=== PATIENT | male | born 1945 | race Caucasian/White ===

== ENCOUNTER → 2017-07-30 | Outpatient (CLI) | payer MEDICARE, BC ==
--- NOTE | 2017-07-30 16:53 | XR ---
EXAMINATION TYPE: XR lumbar spine 2 or 3V DATE OF EXAM: 07/30/2017 COMPARISON: NONE HISTORY: Back pain TECHNIQUE: 3 views FINDINGS: Vertebra have normal alignment. There is anterior mild spurring in the mid and upper lumbar spine. Posterior elements are intact. There is no compression fracture. Sacroiliac joints are intact . IMPRESSION: Mild multilevel spondylosis. No fracture.
--- NOTE | 2017-07-30 16:54 | XR ---
EXAMINATION TYPE: XR pelvis AP view DATE OF EXAM: 07/30/2017 COMPARISON: NONE HISTORY: Back pain TECHNIQUE: Single view FINDINGS: Pelvic ring is intact. Proximal femurs and hip joints are intact. Sacroiliac joints appear normal. IMPRESSION: Normal pelvis. Normal hip joint spaces.
--- NOTE | 2017-07-30 17:03 | XR ---
EXAMINATION TYPE: XR chest 2V DATE OF EXAM: 07/30/2017 COMPARISON: 11/21/2013 HISTORY: Cough TECHNIQUE: Frontal and lateral views of the chest are obtained. FINDINGS: There is no heart failure nor confluent pneumonic infiltrate. There is poor inspiration. B irais thorax is intact. IMPRESSION: Poor inspiration. No acute lung disease. No change.
== END ==
LOC: RADXRMAIN 16:16
PROVIDERS: ATTEND Physician Assistant
DX: M47.816 Spondylosis without myelopathy or radiculopathy, lumbar region (principal); M54.5 Low back pain; R05 Cough
CPT/HCPCS: 71020; 72100; 72170

== ENCOUNTER 2017-10-28 23:39 | Emergency (ER) | payer MEDICARE, BC ==
[2017-10-28 23:46] VITALS: BP 148/81; PULSE 75; RESP 17; TEMP 97
[2017-10-28] MEDS ORDERED: TOPICAL SKIN ADHESIVE 1 EACH AMP TOPICAL ONE (23:55)
--- NOTE | 2017-10-29 00:14 | ED ---
Male Urogenital HPI - General Chief complaint: Urogenital Stated complaint: Male Time Seen by Provider: 10/28/17 23:49 Source: patient, RN notes reviewed Mode of arrival: ambulatory Limitations: no limitations - History of Present Illness Initial comments: This is a 72-year-old male who presents with complaints of bleeding from his scrotum for the past hour or so. He states he was sitting watching television when he got up and noted that he had bleeding in his underwear. This is never occurred before he has no history of recent trauma no scrotal or penile pathology. No fevers chills nausea vomiting sweats or other symptoms. He did wear a depends undergarment to come to the hospital. MD Complaint: other - Related Data Home Medications Medication Instructions Recorded Confirmed Albuterol Inhaler [Ventolin Hfa 2 puff INHALATION QID PRN 07/11/15 07/17/15 Inhaler] Calcium Carbonate [Tums] 1 - 2 tab PO BID PRN 07/11/15 07/17/15 Fluticasone Nasal [place] [Flonase 1 spray NASAL DAILY 07/11/15 07/17/15 Nasal [place]] Lisinopril [Prinivil] 5 mg PO HS 07/11/15 07/17/15 Pravastatin Sodium [Pravachol] 40 mg PO HS 07/11/15 07/17/15 Previous Rx's Medication Instructions Recorded Cephalexin [Keflex] 500 mg PO Q8HR #15 cap 07/17/15 HYDROcodone/APAP 5-325MG [Hend[place] 5] 1 - 2 each PO Q4-6H PRN #90 tab 07/17/15 Allergies Allergy/AdvReac Type Severity Reaction Status Date / Time No Known Allergies Allergy Verified 07/11/15 16:00 Review of Systems ROS Statement: Those systems with pertinent positive or pertinent negative responses have been documented in the HPI. ROS Other: All systems not noted in ROS Statement are negative. Past Medical History Past Medical History: GERD/Reflux, Hyperlipidemia, Hypertension, Prostate Disorder Additional Past Medical History / Comment(s): BRONCHITIS. SEASONAL ALLERGIES. History of Any Multi-Drug Resistant Organisms: None Reported Past Surgical History: Cholecystectomy, Hernia Repair, Orthopedic Surgery Additional Past Surgical History / Comment(s): RIGHT SHOULDER, CARPAL TUNNEL, LEFT SHOULDER ACROMIOPLASTY EXCISION DISTAL END OF CLAVICLE AND ROTATOR CUFF Past Anesthesia/Blood Transfusion Reactions: No Reported Reaction Past Psychological History: No Psychological Hx Reported Smoking Status: Never smoker Past Alcohol Use History: Rare Past Drug Use History: None Reported - Past Family History Mother Family Medical History: Cancer General Exam - General Exam Comments Initial Comments: This is a well-developed well-nourished awake alert oriented 3 male he is hard of hearing Limitations: no limitations General appearance: alert, in no apparent distress Eye exam: Present: normal appearance, PERRL, EOMI. Absent: scleral icterus, conjunctival injection, periorbital swelling GI/Abdominal exam: Present: soft, normal bowel sounds. Absent: distended, tenderness, guarding, rebound, rigid Rectal exam: Present: deferred exam: Present: circumcision, other (The patient does demonstrate several varicosities noted on the scrotumand left it appears 100 spontaneously started bleeding is no active bleeding at this time. Is some dried blood noted to the left anterior aspect the scrotum. Testicles are within normal limits no epididymal tenderness or lesions. No penile discharge is seen.). Absent: scrotal swelling Extremities exam: Present: normal inspection, full ROM, normal capillary refill. Absent: tenderness, pedal edema, joint swelling, calf tenderness Neurological exam: Present: alert, oriented X3, CN II-XII intact Psychiatric exam: Present: normal affect, normal mood Skin exam: Present: warm, dry, normal color. Absent: intact, rash Course Vital Signs 10/28/17 23:42 Temperature 97.0 F L Pulse Rate 75 Respiratory 17 Rate Blood Pressure 148/81 O2 Sat by Pulse 97 Oximetry Procedures - Procedures Initial comment: The area of varicosity bleed was cleaned and Dermabond was used to seal the area. The patient did tolerate this well. Medical Decision Making - Medical Decision Making No further workup is indicated at this time the patient will be discharged. Disposition Clinical Impression: Scrotal bleeding, Varicose vein of scrotum Disposition: HOME SELF-CARE Condition: Good Instructions: Varicose Veins (ED) Referrals: Gustavo Boggs MD [Primary Care Provider] - 1-2 days
== END 2017-10-29 00:15 | disposition home or self-care (01) ==
LOC: EC 23:39
DX: I86.1 Scrotal varices (principal); N50.1 Vascular disorders of male genital organs; E78.5 Hyperlipidemia, unspecified; I10 Essential (primary) hypertension; Z79.51 Long term (current) use of inhaled steroids; Z79.899 Other long term (current) drug therapy; Z87.09 Personal history of other diseases of the respiratory system; Z98.890 Other specified postprocedural states
CPT/HCPCS: 12001; 99283

== ENCOUNTER 2018-04-10 22:26 | Emergency (ER) | payer MEDICARE, BC ==
[2018-04-10] MEDS ORDERED: SODIUM CHLORIDE 0.9% 1,000 ML IV STA (22:43)
--- NOTE | 2018-04-10 22:46 | ED ---
Abdominal Pain HPI - General Chief Complaint: Abdominal Pain Stated Complaint: abd pain Time Seen by Provider: 04/10/18 22:35 Source: patient, RN notes reviewed Mode of arrival: ambulatory Limitations: no limitations - History of Present Illness Initial Comments: This is a 72-year-old male who presents to the emergency department with chief complaint of abdominal pain. Patient states that 2-3 days ago he developed a constant, sharp pain that extends transversely along the mid abdomen. He states that pain is made worse by lying flat and made better by sitting up and leaning to the right. He states that the pain is made worse by walking for long periods of time. He denies nausea or vomiting, diarrhea or constipation, fevers or chills, chest pain or shortness of breath. He states that he does have a history of cholecystectomy but denies other abdominal surgeries. Denies dysuria, hematuria or increase in urinary frequency. He states that on the day of onset, the pain was mild and dull. He states it has progressively worsened and today has been the worst. He states that he took 1000 mg of Tylenol with minimal relief. - Related Data Home Medications Medication Instructions Recorded Confirmed Albuterol Inhaler [Ventolin Hfa 2 puff INHALATION QID PRN 07/11/15 07/17/15 Inhaler] Calcium Carbonate [Tums] 1 - 2 tab PO BID PRN 07/11/15 07/17/15 Fluticasone Nasal [place] [Flonase 1 spray NASAL DAILY 07/11/15 07/17/15 Nasal [place]] Lisinopril [Prinivil] 5 mg PO HS 07/11/15 07/17/15 Pravastatin Sodium [Pravachol] 40 mg PO HS 07/11/15 07/17/15 Previous Rx's Medication Instructions Recorded Cephalexin [Keflex] 500 mg PO Q8HR #15 cap 07/17/15 HYDROcodone/APAP 5-325MG [[place] 5] 1 - 2 each PO Q4-6H PRN #90 tab 07/17/15 Azithromycin [Zithromax Z-pack] 0 mg PO DIRECTED #6 tab 04/11/18 Allergies Allergy/AdvReac Type Severity Reaction Status Date / Time No Known Allergies Allergy Verified 04/10/18 22:34 Review of Systems ROS Statement: Those systems with pertinent positive or pertinent negative responses have been documented in the HPI. ROS Other: All systems not noted in ROS Statement are negative. Past Medical History Past Medical History: GERD/Reflux, Hyperlipidemia, Hypertension, Prostate Disorder Additional Past Medical History / Comment(s): BRONCHITIS. SEASONAL ALLERGIES. History of Any Multi-Drug Resistant Organisms: None Reported Past Surgical History: Cholecystectomy, Hernia Repair, Orthopedic Surgery Additional Past Surgical History / Comment(s): RIGHT SHOULDER, CARPAL TUNNEL, LEFT SHOULDER ACROMIOPLASTY EXCISION DISTAL END OF CLAVICLE AND ROTATOR CUFF Past Anesthesia/Blood Transfusion Reactions: No Reported Reaction Past Psychological History: No Psychological Hx Reported Smoking Status: Never smoker Past Alcohol Use History: Rare Past Drug Use History: None Reported - Past Family History Mother Family Medical History: Cancer General Exam - General Exam Comments Initial Comments: General: Awake and alert, well-developed; in no apparent distress. HEENT: Head atraumatic, normocephalic. Pupils are equal, round and reactive to light. Extraocular movements intact. Oropharynx moist without erythema or exudate. Neck: Supple. Normal ROM. Cardiovascular: Regular rate and rhythm. No murmurs, rubs or gallops. Chest symmetrical. Respiratory: Lungs clear to auscultation bilaterally. No wheezes, rales or rhonchi. Normal respiratory effort with no use of accessory muscles. Abdomen: Soft, mildly distended. Tenderness on palpation of right mid abdomen. No rigidity, rebound or guarding. Normal bowel sounds in all 4 quadrants. Musculoskeletal: Normal ROM, no tenderness bilateral upper and lower extremities. Ambulating normally. Skin: [place], warm and dry without rashes or lesions. Neurological: Alert and oriented x3. CN II-XII grossly intact. Speech is fluent and answers are appropriate. No focal neuro deficits. Psychiatric: Normal mood and affect. No overt signs of depression or anxiety noted. Limitations: no limitations Course Vital Signs 04/10/18 22:30 Temperature 98.3 F Pulse Rate 84 Respiratory 20 Rate Blood Pressure 135/77 O2 Sat by Pulse 95 Oximetry Medical Decision Making - Medical Decision Making This is a 72-year-old male who presents to the emergency department with chief complaint of abdominal pain for the past 2-3 days. Patient complains of a constant sharp pain along the midline of his abdomen. On physical examination, there is tenderness on palpation of right mid abdomen. Patient denies fevers or chills, nausea or vomiting, diarrhea or constipation. CBC, CMP and UA were unremarkable. I discussed further evaluation with computed tomography scan with patient. He stated that he wanted to go through with the computed tomography scan of the abdomen because he did not want to return to the emergency department if the pain worsened. Computed tomography scan of the abdomen and pelvis with contrast was obtained and revealed no evidence for lower abdominal pain. It did reveal mild infiltrate and atelectasis at the lung bases. Patient does state that he has recently had a cough. Patient will be given a prescription for azithromycin. Patient's vital signs and stable throughout entire emergency department stay. He is in no acute distress and will be discharged home at this time. He is in agreement with plan and voices understanding. All questions answered. - Lab Data Result diagrams: 04/10/18 22:49 04/10/18 22:49 Lab Results 04/10/18 04/10/18 04/10/18 Range/Units 22:49 22:49 22:49 WBC 11.2 H (3.8-10.6) k/uL RBC 4.64 (4.30-5.90) m/uL Hgb 15.0 (13.0-17.5) gm/dL Hct 43.1 (39.0-53.0) % MCV 93.0 (80.0-100.0) fL MCH 32.3 (25.0-35.0) pg MCHC 34.7 (31.0-37.0) g/dL RDW 13.5 (11.5-15.5) % Plt Count 117 L (150-450) k/uL Neutrophils % 76 % Lymphocytes % 17 % Monocytes % 5 % Eosinophils % 1 % Basophils % 0 % Neutrophils # 8.6 H (1.3-7.7) k/uL Lymphocytes # 1.9 (1.0-4.8) k/uL Monocytes # 0.6 (0-1.0) k/uL Eosinophils # 0.1 (0-0.7) k/uL Basophils # 0.0 (0-0.2) k/uL PT 10.3 (9.0-12.0) sec INR 1.1 (<1.2) APTT 22.8 (22.0-30.0) sec Sodium 138 (137-145) mmol/L Potassium 4.1 (3.5-5.1) mmol/L Chloride 103 (98-107) mmol/L Carbon Dioxide 25 (22-30) mmol/L Anion Gap 10 mmol/L BUN 18 (9-20) mg/dL Creatinine 0.97 (0.66-1.25) mg/dL Est GFR (CKD-EPI)AfAm 89 (>60 ml/min/1.73 sqM) Est GFR (CKD-EPI)NonAf 77 (>60 ml/min/1.73 sqM) Glucose 86 (74-99) mg/dL Calcium 8.6 (8.4-10.2) mg/dL Total Bilirubin 0.9 (0.2-1.3) mg/dL AST 26 (17-59) U/L ALT 37 (21-72) U/L Alkaline Phosphatase 49 (38-126) U/L Total Protein 6.0 L (6.3-8.2) g/dL Albumin 4.1 (3.5-5.0) g/dL Amylase 39 (30-110) U/L Lipase 102 (23-300) U/L - Radiology Data Radiology results: report reviewed Computed tomography scan abdomen and pelvis with contrast impression: There is some mild infiltrate and atelectasis at the lung bases and more on the right side. I do not see a cause for lower abdominal pain. As read by Dr. Lopez. Disposition Clinical Impression: Abdominal pain, Pulmonary infiltrates on CXR Disposition: HOME SELF-CARE Condition: Good Instructions: Abdominal Pain (ED) Additional Instructions: Please take medications as prescribed. Please follow up with primary care provider within 1-2 days. Return to emergency department if symptoms should worsen or any concerns arise. Prescriptions: Azithromycin [Zithromax Z-pack] 0 mg PO DIRECTED #6 tab Is patient prescribed a controlled substance at d/c from ED?: No Referrals: Gustavo Boggs MD [Primary Care Provider] - 1-2 days Time of Disposition: 00:36
[2018-04-10 23:02] LABS: Basophils % (A) 0 %; Eosinophils # (A) 0.1 k/uL (0-0.7); Eosinophils % (A) 1 %; HCT 43.1 % (39.0-53.0); Lymphocytes # (A) 1.9 k/uL (1.0-4.8); Lymphocytes % (A) 17 %; MCH 32.3 pg (25.0-35.0); MCHC 34.7 g/dL (31.0-37.0); Mean Platelet Volume 8.1; Monocytes # (A) 0.6 k/uL (0-1.0); Monocytes % (A) 5 %; Neutrophils # (A) 8.6 k/uL (1.3-7.7); Neutrophils % (A) 76 %; Platelet Count 117 k/uL (150-450); RBC 4.64 m/uL (4.30-5.90); RDW 13.5 % (11.5-15.5); WBC 11.2 k/uL (3.8-10.6)
[2018-04-10 23:11] LABS: Albumin 4.1 g/dL (3.5-5.0); Calcium 8.6 mg/dL (8.4-10.2); Potassium 4.1 mmol/L (3.5-5.1); Total Bilirubin 0.9 mg/dL (0.2-1.3)
[2018-04-10 23:16] LABS: INR 1.1 (<1.2); Partial Thromboplastin Time 22.8 sec (22.0-30.0); Prothrombin Time 10.3 sec (9.0-12.0)
[2018-04-10 23:35] LABS: Appearance,Urine Clear (Clear); Bilirubin,Urine Negative (Negative); Blood,Urine Negative (Negative); Color,Urine Yellow; Glucose,Urine (UA) Negative (Negative); Ketones,Urine Negative (Negative); Leukocyte Esterase,Urine Negative (Negative); Nitrite,Urine Negative (Negative); Protein,Urine Negative (Negative); Specific Gravity,Urine 1.012 (1.001-1.035); Urobilinogen,Urine <2.0 mg/dL (<2.0)
--- NOTE | 2018-04-11 00:18 | CT ---
EXAMINATION TYPE: CT abdomen pelvis w con DATE OF EXAM: 04/11/2018 COMPARISON: NONE HISTORY: Lower abd pain CT DLP: 688.60 mGycm Automated exposure control for dose reduction was used. TECHNIQUE: Helical acquisition of images was performed from the lung bases through the pelvis. CONTRAST: Performed without Oral Contrast and with IV Contrast, patient injected with 100 mL of Isovue 300. FINDINGS: There are interstitial infiltrates at the lung bases. There is no pleural effusion. There is no peric ardial effusion. There is a 5.5 cm cyst in the anterior spleen. There is a 2 cm calcified cyst in the posterior spleen . There is 3.6 cm cyst in the inferior spleen. There is no pancreatic mass. Gallbladder is absent. Th ere are clips from cholecystectomy. Bile ducts are not dilated. There is no adrenal mass. Kidneys show satisfactory contrast opacification. There is no hydronephrosi s. There are bilateral renal parapelvic cysts. Ureters are not dilated. There is no retroperitoneal a denopathy. There is no intestinal wall thickening. There are no dilated loops. Bladder distends smoothly. The [place] structures appear intact. There are spondylotic changes in the thoracic and lumbar spine. Appendix appears normal. IMPRESSION: THERE IS SOME MILD INFILTRATE AND ATELECTASIS AT THE LUNG BASES AND MORE ON THE RIGHT SIDE. I do not see a cause for lower abdominal pain.
[2018-04-11 00:19] VITALS: BP 112/64; PULSE 69; RESP 16; TEMP 98.6
== END 2018-04-11 00:47 | disposition home or self-care (01) ==
LOC: EC 22:26
DX: R10.9 Unspecified abdominal pain (principal); R91.8 Other nonspecific abnormal finding of lung field; E78.5 Hyperlipidemia, unspecified; I10 Essential (primary) hypertension; Z79.51 Long term (current) use of inhaled steroids; Z79.899 Other long term (current) drug therapy; Z90.49 Acquired absence of other specified parts of digestive tract
CPT/HCPCS: 36415; 80053; 82150; 83690; 85025; 85610; 85730; 81003; 74177; 99284; 96360; 96361; Q9967

== ENCOUNTER → 2018-05-19 | Outpatient (CLI) | payer MEDICARE, BC ==
--- NOTE | 2018-05-19 12:12 | XR ---
EXAMINATION TYPE: XR chest 2V DATE OF EXAM: 05/19/2018 COMPARISON: 07/30/[address] dated 04/11/2018 HISTORY: Recent pneumonia. Follow-up exam. TECHNIQUE: Frontal and lateral views of the chest are obtained. FINDINGS: Linear bibasilar subsegmental atelectasis is noted. There is mild pulmonary hypoinflation. There is no focal air space opacity, pleural effusion, or pneumothorax seen. The cardiac silhouette size is within normal limits. The osseous structures are intact. Cholecystectomy clips are noted w ithin the right upper quadrant. Degenerative changes of the thoracic spine are moderate and there is moderate degenerative change of the shoulders also noted. IMPRESSION: Minimal bibasilar subsegmental atelectasis. No focal consolidation to suggest pneumonia.
== END | disposition home or self-care (01) ==
LOC: RADXRMAIN 11:26
PROVIDERS: ATTEND Family Medicine
DX: J98.11 Atelectasis (principal)
CPT/HCPCS: 71046

== ENCOUNTER → 2021-11-01 | Outpatient (CLI) | payer MEDICARE ==
--- NOTE | 2021-11-01 11:46 | CT ---
EXAMINATION TYPE: CT abdomen pelvis wo con DATE OF EXAM: 11/01/2021 COMPARISON: 04/10/2018 HISTORY: Right sided flank/abdominal pain CT DLP: 736 mGycm Automated exposure control for dose reduction was used. TECHNIQUE: Helical acquisition of images was performed from the lung bases through the pelvis. FINDINGS: LUNG BASES: Subsegmental linear changes most typical of atelectasis. Heart is enlarged. LIVER/GB: Pos tcholecystectomy changes noted. PANCREAS: No significant abnormality is seen. SPLEEN: Calcifications within the spleen similar to the prior exam as well as a lumbar cyst measuring 7 Houns field units measuring approximately 6 cm. ADRENALS: No significant abnormality is seen. KIDNEYS: Bilateral parapelvic renal cysts suspected. Cortical loss involving the anterior lower pole right kidney stable correlate for previous medical renal disease. ADENOPATHY: None visualized. OSSEOUS STRUCTURES: Multilevel hypertrophic and degenerative disc disease. BOWEL: Diverticulosis of the colon with no CT evidence of diverticular disease. 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 Extends into the peritoneal cavity with suspected hernia. Retrospectively stable from prior exam. Prostate is markedly enlarged. IMPRESSION: 1. There is a right-sided anterior abdominal wall hernia with a fatty attenuating 6 cm lesion likely related to a lipoma. Could be correlated with MRI or atypical lipoma. 2. No hydronephrosis or nephrolithiasis. Bilateral parapelvic renal cysts 3 stable splenic changes in cluding large 6 cm cyst additional areas of calcification. 3. Postcholecystectomy changes with extrahepatic biliary dilation compatible with previous surgery an d retrospectively stable from prior exam.
== END | disposition home or self-care (01) ==
LOC: RADCTMAIN 09:00
PROVIDERS: ATTEND Family Medicine
DX: K43.9 Ventral hernia without obstruction or gangrene (principal); N28.1 Cyst of kidney, acquired
CPT/HCPCS: 74176

== ENCOUNTER → 2024-01-29 | Outpatient (CLI) | payer MEDICARE ==
--- NOTE | 2024-01-29 18:30 | XR ---
EXAMINATION TYPE: XR hand complete LT, XR wrist complete LT DATE OF EXAM: 01/29/2024 5:06 PM CLINICAL INDICATION:Male, 78 years old with history of M67.442 GANGLION, LEFT HAND; COMPARISON: None TECHNIQUE: XR hand complete LT, XR wrist complete LT Frontal, lateral and oblique views were obtained . FINDINGS: Normal alignment of the visualized joints. No acute osseous pathology is identified. No e vidence of soft tissue swelling. Severe degeneration changes throughout the joints of the hand most p ronounced at the first digit carpometacarpal joint. IMPRESSION: * No acute osseous pathology. * Severe degeneration changes throughout the joints of the hand most pronounced at the first digit c arpometacarpal joint.
== END | disposition home or self-care (01) ==
LOC: RADXRMAIN 16:48
PROVIDERS: ATTEND Family Medicine
DX: M19.042 Primary osteoarthritis, left hand (principal); M67.442 Ganglion, left hand

== ENCOUNTER → 2024-02-19 | Outpatient (CLI) | payer MEDICARE ==
--- NOTE | 2024-02-19 12:07 | US ---
EXAMINATION TYPE: US abdomen comp/pelvis limited DATE OF EXAM: 02/19/2024 COMPARISON: NONE CLINICAL INDICATION: Male, 78 years old with history of R14.0 ABDOMINAL DISTENSION (GASEOUS); bloatin g, cholecystectomy EXAM MEASUREMENTS: Liver Length: 14.1 cm Gallbladder Wall: Surgically absent Spleen: 11.3 cm Right Kidney: 9.7 x 5.7 x 5.0 cm Left Kidney: 10.3 x 5.7 x 4.7 cm Pancreas: Obscured by bowel gas Liver: best seen intercostally, visualized portions appear wnl Gallbladder: Surgically absent CBD: Obscured by overlying bowel gas Spleen: complex cystic lesion = 4.6 x 4.5 x 4.9cm. cystic lesion = 4.2 x 3.6 x 3.8cm Right Kidney: parapelvic cyst Left Kidney: no evidence of hydronephrosis Upper IVC: Obscured by overlying bowel gas Abd Aorta: limited evaluation, visualized portions appear wnl Bladder: appears wnl Bilateral Jets Seen no *Prostate = 5.1cm IMPRESSION: 1. Evaluation of the pancreas, liver and aorta limited by bowel gas. 2. Splenic cystic mass is stable compared to prior CT dated 11/01/2021 and 3. Cholecystectomy 4. No significant abnormality the kidneys and urinary bladder. 5. Prostatic hypertrophy.
== END | disposition home or self-care (01) ==
LOC: RADUSWWP 06:39
PROVIDERS: ATTEND Internal Medicine Gastroenterology
DX: N40.0 Benign prostatic hyperplasia without lower urinary tract symptoms (principal); D73.89 Other diseases of spleen; R14.0 Abdominal distension (gaseous); Z90.49 Acquired absence of other specified parts of digestive tract
CPT/HCPCS: 76700; 76857

== ENCOUNTER → 2024-02-24 | Outpatient (CLI) | payer MEDICARE ==
[2024-02-24 19:22] LABS: Amylase 44 U/L (23-121); C Reactive Protein <0.30 mg/dL (0.00-0.80); Lipase 41 U/L (14-60)
[2024-02-24 20:23] LABS: Gliadin AB IgA, Deaminated Negative (Negative); Gliadin AB IgA, Unit <0.5 U/mL; Gliadin AB IgG, Deaminated Negative (Negative); Gliadin AB IgG, Unit <0.4 U/mL
[2024-02-24 23:55] LABS: Clam IgE <0.10 kU/L; Codfish IgE <0.10 kU/L; Egg White IgE <0.10 kU/L; Peanut IgE <0.10 kU/L; Scallop IgE <0.10 kU/L; Shrimp IgE <0.10 kU/L; Soybean IgE <0.10 kU/L; Walnut IgE (Food) <0.10 kU/L
== END | disposition home or self-care (01) ==
LOC: LABWHC1 12:05
PROVIDERS: ATTEND Internal Medicine Gastroenterology
DX: R14.0 Abdominal distension (gaseous) (principal)
CPT/HCPCS: 36415; 82150; 82653; 82785; 83516; 83690; 85652; 86003; 86140; 87338